=== PATIENT | male | born 1965 | race Caucasian/White ===

== ENCOUNTER 2016-10-13 22:59 | Emergency (ER) | payer OTHER ==
[~2016-10-13] VITALS: Ht 177.8 cm; Wt 121.6 kg
[~2016-10-13 22:59] MED LIST: ASPIRIN EC81 M1 PO; ASTEPRO205.5 MCG/ NASB; GABAPENTIN300 M2 PO; HCTZ/LISINOPRIL1 TA1 PO; HYDROCODON-ACE1 EAC4 PO; NORCO 325 MG-7.1 TAB PO; PANTOPRAZOLE SO40 M1 PO; PERCOCET 325 MG1 TA2 PO; PRILOSEC20 MG PO; ROPINIROLE HYDRO1 MG PO; VITAMIN D1000 UNIT PO
--- NOTE | 2016-10-14 01:18 | RADIOLOGY REPORT ---
EXAMINATION: 3 views of the left ankle and 4 views of the left knee CLINICAL INFORMATION: Pain COMPARISON: Left ankle radiographs January 24, 2016 TECHNIQUE: AP, lateral, and mortise views of the left ankle. FINDINGS: LEFT ANKLE: No fractures. The bony articulations are maintained. Ankle mortise is intact. No soft tissue swelling. No ankle joint effusion. LEFT KNEE: No fracture. The bony articulations are maintained. There is a small knee joint effusion. No radiopaque foreign bodies. IMPRESSION: Left knee: No acute osseous findings. Small knee joint effusion. Left ankle: No acute osseous findings.
--- NOTE | 2016-10-14 01:56 | ED UPPER/LOWER EXTREMITY COMPL ---
History of Present Illness General Chief Complaint: Lower Extremity Injury Stated Complaint: L LOWER LEG PAIN Source: patient Exam Limitations: no limitations Vital Signs & Intake/Output Vital Signs & Intake/Output Vital Signs Date Time Temp Pulse Resp B/P B/P Pulse O2 O2 Flow FiO2 Mean Ox Delivery Rate 10/13 2356 98.8 77 24 130/93 94 10/13 2308 97.8 90 20 152/76 95 Room Air ED Intake and Output 10/14 0000 10/13 1200 Intake Total Output Total Balance Patient 268 lb Weight Weight Reported by Patient Measurement Method Allergies Coded Allergies: Penicillins (Severe, ANAPHYLAXIS 10/13/16) latex (Mild, RASH 10/13/16) Reconcile Medications Aspirin (Ecotrin*) 81 MG TABLET.DR 1 TAB PO DAILY HEART HEALTH (Reported) Cholecalciferol (Vitamin D3) (Vitamin D) 1,000 UNIT TABLET 1 TAB PO DAILY SUPPLEMENT (Reported) Gabapentin 300 MG CAPSULE 1 CAP PO TID PAIN (Reported) Hydrochlorothiazide/Lisinopr (Hctz/Lisinopril 12.5 MG-20 MG) 1 TAB TAB 1 TAB PO DAILY BP (Reported) Hydrocodone/Acetaminophen (Hydrocodon-Acetaminophn 10-300) 1 EACH TABLET 1 TAB PO Q4-6 PRN PRN PAIN (Reported) Pantoprazole Sodium 40 MG TABLET.DR 1 TAB PO BID GI (Reported) ROPINIROLE HCL (Ropinirole Hydrochloride) 1 MG TABLET 1 TAB PO DAILY RESTLESS LEGS (Reported) Triage Note: TRIAGE: PT TO ER WITH C/C L KNEE PAIN, ONSET LAST NIGHT, CONSTANT SINCE ONSET. RATES 02/03. TAKES VICODIN AT BASELINE R/T CHRONIC BACK PAIN AND HAS ALSO HAD TYLENOL X 2 TABS FOR PAIN WITH NO RELIEF NOTED. ONSET OF PAIN WHEN WALKING IN YARD ON UNLEVEL GROUND, TURNED AND "MY ANKLE TWEAKED AND I FELT SOMETHING CRACK ON THE SIDE OF MY KNEE". Triage Nurses Notes Reviewed? yes Onset: YESTERDAY Duration: hour(s):, constant, continues in ED, getting worse Severity: severe Pain/Injury Location: Left: Knee. Method of Injury: STEPPED ONTO UNEVEN GROUND Modifying Factors: Worsens With: movement. HPI: Patient presents for evaluation of severe left knee pain as result of an injury yesterday. Patient states that he stepped on some uneven ground causing the knee and ankle to twist. Past History Travel History Traveled to [place] past day No Medical History Any Pertinent Medical History? 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 No Review of Systems Review of Systems Constitutional: Reports: no symptoms. EENTM: Reports: no symptoms. Respiratory: Reports: no symptoms. Cardiovascular: Reports: no symptoms. Gastrointestinal/Abdominal: Reports: no symptoms. Genitourinary: Reports: no symptoms. Musculoskeletal: Reports: see HPI. Skin: Reports: no symptoms. Neurological/Psychological: Reports: no symptoms. Hematologic/Endocrine: Reports: no symptoms. Immunological: Reports: no symptoms. All Other Systems: Reviewed and Negative Physical Exam Physical Exam General Appearance: SEE BELOW Comments: Gen.: Well-nourished, well-developed, no acute respiratory distress. Head: Normocephalic, atraumatic. Eyes: Normal inspection bilaterally Ears: Normal inspection bilaterally Nose: Normal inspection, nasal cannula in place Throat/mouth : Moist mucosa Neck: Supple, full range of motion, no goiter Heart: Regular rate and rhythm Lungs: Quiet respirations Back: Normal range of motion Extremities: Left knee: Mild to moderate effusion present with tenderness but no erythema or warmth, left knee is stable. Left ankle is nontender with no visible swelling or other deformity. The left leg is neurovascularly intact distally. Neurologic: Cranial nerves grossly intact, speech is clear Skin: warm and dry Psychiatric: Calm, cooperative, no apparent delusions or hallucinations Progress Differential Diagnosis: dislocation, fracture, sprain Plan of Care: Orders Procedure Date/time Status Durable Medical Equipment 10/14 206 Active Current Medications Sig/Juliette Start time Last Medication Dose Stop Time Status Admin Naproxen 500 MG ONCE ONE 10/14 214 UNVr (Naprosyn) 10/15 215 SEE D/C INSTRUCTIONS (SAGAR BRATNLEY,TEOFILO Morales) Departure Departure Disposition: HOME OR SELF CARE Condition: Stable Clinical Impression Primary Impression: Left knee sprain Qualifiers: Encounter type: initial encounter Involved ligament of knee: unspecified ligament Qualified Code: S83.92XA - Sprain of unspecified site of left knee, initial encounter Secondary Impressions: Effusion, left knee Referrals: KATHERIN BRANTLEY,AXEL Alvarez (PCP/Family) Additional Instructions: Ice and elevation over the next 48 hours. Use the knee immobilizer as necessary. Diclofenac as prescribed for pain. Follow-up with your primary care physician in 3-5 days for reevaluation and return for any concerns or sudden worsening. Please note that there might be incidental findings in your evaluation that are unrelated to the current emergency department visit. Please notify your primary care doctor about this emergency department visit in order to obtain and review all of the testing performed so that these incidental findings can be monitored as needed. If you had an x-ray performed, please understand that some fractures may not be seen on the initial set of x-rays. If your symptoms persist you might need a repeat set of x-rays to check for such a fracture. If you had a laceration evaluated, please understand that foreign bodies such as glass or wood may not be visible to the naked eye or on plain x-rays. If the wound becomes red, swollen, increasingly more painful or if there is any drainage from the wound, please have it reevaluated by a physician for the possibility of a retained foreign body. Thank you for choosing the [facility] Emergency Department for your care. It was a pleasure to serve you today. Teofilo Shrestha M.D. [facility] Departure Forms: Customer Survey General Discharge Information
[2016-10-14] MEDS ORDERED: DICLOFENAC SODI75 M2 PO (02:16)
[2016-10-14 02:19] VITALS: BP 142/87
== END 2016-10-14 02:23 ==
LOC: ERH 22:59
DX: S83.92XA Sprain of unspecified site of left knee, initial encounter (principal); M25.462 Effusion, left knee; X58.XXXA Exposure to other specified factors, initial encounter; Y92.9 Unspecified place or not applicable; Y93.9 Activity, unspecified
CPT/HCPCS: 73562-LT; 73610-LT